=== PATIENT | male | born 1965 | race Caucasian/White ===

== ENCOUNTER 2016-10-28 22:00 | Inpatient (IN) | payer OTHER ==
[~2016-10-28] VITALS: Ht 182.9 cm; Wt 99.8 kg
--- NOTE | ~2016-10-28 | HP ---
Unit #: [id number] #: [id number] Patient: NYA PATRICK [id number] [place] [address] [id number] MR#: [id number] NAME: NYA PATRICK ROOM: [facility] Age: 50 Sex: M Admission Date: 10/29/2016 : 1965 Attending Physician: Kyle Melendrez M.D. Admitting Physician: Kyle Melendrez M.D. Primary Care Physician: Primary Care Physician No HISTORY AND PHYSICAL HISTORY OF PRESENT ILLNESS The patient is a 50-year-old male who states that he really does not know why he is here. Chart states that patient was brought here by family and he had been having some depression and having difficulty handling his current situation. PAST MEDICAL HISTORY 1. Seasonal allergies. 2. Thyroid issue. 3. Diabetes. PAST SURGICAL HISTORY None. ALLERGIES None. SOCIAL HISTORY Negative. FAMILY HISTORY Noncontributory. REVIEW OF SYSTEMS CONSTITUTIONAL: No fever or chills. HEENT: Denies any sore throat, ear pain or runny nose. CARDIOVASCULAR: Denies chest pain, irregular heart rhythm or palpitations. CHEST: Denies shortness of breath or cough. No hemoptysis. GASTROINTESTINAL: Denies nausea, vomiting, diarrhea or chronic constipation. ENDOCRINE: Denies history of increased thirst or urination. No recent significant weight loss or gain. GENITOURINARY: Denies dysuria, frequency, or hematuria. SKIN: Denies any rashes. HEMATOLOGIC: Denies history of increased bleeding or bruising. MUSCULOSKELETAL: Denies any hot, swollen joints. No generalized muscle pain. NEUROLOGIC: Denies problems with vision or speech. No frequent, severe headaches. No numbness, tingling or weakness in any extremities. Denies loss of bladder or bowel control. CURRENT MEDICATIONS 1. Levothyroxine 75 mcg p.o. daily. Unit #: [id number] #: [id number] Patient: NYA PATRICK 2. Glipizide 10 mg p.o. daily. 3. Metformin 1000 mg p.o. b.i.d. 4. Loratadine 10 mg p.o. daily. PHYSICAL EXAMINATION GENERAL: Alert, oriented, in no acute distress. VITAL SIGNS: Temperature 97.3, blood pressure 168/82, pulse 93, respirations 18. HEIGHT: Not available. WEIGHT: Not available. SKIN: Warm and dry without rash or lesion. Scar to the lumbar spine area and also the left foot plantar surface a very thick callus. HEENT: Normocephalic. TMs not viewed. Oral and nasal passages clear. Conjunctivae clear. PERRLA. EOMs intact. NECK: Supple without lymphadenopathy or thyromegaly. HEART: Regular rate and rhythm without murmur. LUNGS: Clear. ABDOMEN: Soft, nontender, without masses or hepatosplenomegaly. : Not done. EXTREMITIES: No evidence of cyanosis, clubbing or edema. Moves all without focal deficit. NEUROLOGICAL: Grossly within normal limits. Cranial Nerves: II: Visual morin are intact. III, IV AND : Extraocular movements are intact. Pupils are equal, round and reactive to light. V: Facial sensation is grossly normal. VII: Facial movements and expression are normal. VIII: Auditory acuity grossly intact. IX, X: Uvula is midline. Phonation is normal. XI: Patient shrugs shoulders and turns head normally. XII: Tongue protrudes in the midline. Sensory and Motor Function: Sensory and motor sensation is grossly normal. Motor: moves all extremities well. Coordination: Gait is normal. Deep Tendon Reflexes: Intact. IMPRESSION Psychiatric admission. RECOMMENDATIONS PSYCHIATRIC: Per psychiatrist. MEDICAL: No contraindication to participate in facility's activities. MEDICAL PROGNOSIS Good. Dictated by... Alejandro Morse/lucia TD: 10/29/2016 18:44 JOB #: [id number] Unit #: [id number] #: [id number] Patient: NYA PATRICK HISTORY AND PHYSICAL Page 1 of 1 X Dasia Joseph APR X HISTORY AND PHYSICAL
--- NOTE | ~2016-10-28 | DS ---
Unit #: [id number] #: [id number] Patient: NYA PATRICK [id number] [facility] [address] [place] [address] [id number] I MR#: [id number] NAME: NYA PATRICK ROOM: [facility] Age: 50 Sex: M Admission Date: 10/29/2016 : 1965 Discharge Date: 10/30/2016 Attending Physician: Kyle Melendrez M.D. Primary Care Physician: Primary Care Physician No DISCHARGE SUMMARY REASON FOR ADMISSION Nya is a 50-year-old man, who came to the hospital reporting increasing psychosocial stressors causing him to become increasingly dysphoric with some trouble sleeping. He had vague suicidal thoughts, but no intent to and was admitted for stabilization. DIAGNOSTIC STUDIES LABORATORY RESULTS: Please see hospital chart. HOSPITAL COURSE The patient was admitted and placed on suicide precautions. In the morning of my initial assessment, the patient was pleasant and cooperative. He adamantly denied suicidal ideation, intent, or plan and stated that he needed to return home for several important events this week. We discussed treatment plan, and he stated that he would like to follow up with his primary care doctor and consider antidepressant medication. After he was able to give a reliable contract for safety, the patient was discharged at his request. DISCHARGE DIAGNOSES AXIS I: Adjustment disorder with depressed mood, F43.21. AXIS II: No diagnosis. AXIS III: Diabetes, hyperthyroidism. AXIS IV: AXIS V: DISCHARGE INSTRUCTIONS Follow up with primary care physician and community mental health resources. DISCHARGE MEDICATIONS No prescriptions were given. The patient was continued on levothyroxine 75 mcg daily for hyperthyroidism, glipizide 10 mg daily for diabetes, metformin 1000 mg b.i.d. for diabetes, loratadine 10 mg daily for seasonal allergies. CONDITION AT DISCHARGE Improved. PROGNOSIS Good. Unit #: [id number] #: [id number] Patient: NYA PATRICK DIET AND ACTIVITY Per primary care doctor. Dictated by... Kyle Melendrez M.D. VANESSA/avril TD: 10/30/2016 11:51 JOB #: [id number] DISCHARGE SUMMARY Page 1 of 1 X Kyle Melendrez MD X DISCHARGE SUMMARY
--- NOTE | ~2016-10-28 | PA ---
Unit #: [id number] #: [id number] Patient: NYA PATRICK [id number] [facility] [address] [place] [address] [id number] I MR#: [id number] NAME: NYA PATRICK ROOM: [facility] Age: 50 Sex: M Admission Date: 10/29/2016 : 1965 Date of Assessment: Attending Physician: Kyle Melendrez M.D. Admitting Physician: Kyle Melendrez M.D. Primary Care Physician: Primary Care Physician No PSYCHIATRIC ASSESSMENT DATE OF ASSESSMENT 10/30/2016. INFORMANTS The patient, reliable; OLOP, reliable. CHIEF COMPLAINT Increasing stress. HISTORY OF PRESENT ILLNESS The patient is a 50-year-old man, who reported that he has been increasingly depressed, despite compliance with his outpatient therapist. He felt overwhelmed and had vague thoughts of suicide, but no specific intent. He reported multiple psychosocial stressors including difficulty with his girlfriend's illness and feeling "tired and exhausted." He was unable to contract for safety, and was admitted for stabilization. PAST PSYCHIATRIC HISTORY The patient reports a history of treatment through the [facility]. He is not currently taking psychiatric medications. FAMILY PSYCHIATRIC HISTORY The patient witnessed his grandmother suicide when he was 8 years old by a gunshot wound. SOCIAL HISTORY The patient denied a history of childhood abuse or neglect. He is a heterosexual man with a current girlfriend, who is supportive, but is having medical problems. He is a college graduate with a master's degree, who recently lost his job after his company left [employer]. He is having financial stressors at this point. PAST MEDICAL HISTORY Significant for diabetes and hyperthyroidism. MEDICATIONS Please see MAR. ALLERGIES No known medication allergies. SUBSTANCE USE HISTORY The patient has no reported history of chemical abuse or dependence. Unit #: [id number] #: [id number] Patient: NYA PATRICK MENTAL STATUS EXAMINATION The patient presented as a neatly dressed and groomed man, who appeared his stated age. He was cooperative with the examination. His speech was spontaneous and easily understood. Musculoskeletal examination was calm. His mood was moderately depressed with a congruent affect. He was alert and fully oriented. His memory and concentration were intact. His thought processes were logical with no active psychosis. He now denied suicidal ideation, intent, or plan. Insight and judgment were intact. Fund of knowledge and abstraction were intact. ASSETS AND LIABILITIES The patient knows local resources and presents voluntarily for treatment. Liabilities include lack of current treatment plan. ADMITTING DIAGNOSES AXIS I: Adjustment disorder with depressed mood, F43.21. AXIS II: No diagnosis. AXIS III: Diabetes and hyperthyroidism. AXIS IV: AXIS V: PSYCHIATRIC PLAN The patient was admitted overnight and placed on suicide precautions. He immediately began requesting discharge stating that he "did not belong here." This morning, the patient was pleasant and cooperative with the examination, but reiterated that he did not feel he was unsafe in the community, and that inpatient treatment was not only was excessive and would not meet his needs. After he was able to give a reliable contract for safety, I agreed to discharge with followup through his primary care doctor. Dictated by... Kyle Melendrez M.D. VANESSA/avril TD: 10/30/2016 13:00 JOB #: [id number] PSYCHIATRIC ASSESSMENT Page 1 of 1 X Kyle Melendrez MD PSYCHIATRIC ASSESSMENT
[~2016-10-28 22:00] MED LIST: FLEXERIL PO; GLUCOTROL PO; IBUPROFEN PO; LIPITOR PO; METFORMIN PO; PORTLAND PHARMACY; SYNTHROID PO; ZOLOFT PO
== END 2016-10-30 11:30 | disposition home or self-care (01) | DRG 881 ==
LOC: P1S 10-29 03:20 → P2L 10-29 17:44
DX: F43.21 Adjustment disorder with depressed mood (principal); E11.9 Type 2 diabetes mellitus without complications; E05.90 Thyrotoxicosis, unspecified without thyrotoxic crisis or storm